=== PATIENT | male | born 1980 | race Caucasian/White ===

== ENCOUNTER → 2018-05-05 07:52 | Outpatient (CLI) | payer OTHER, SELFPAY | PROVIDERS: Family Provider Family Medicine; PCP Family Medicine; Visit Provider Family Medicine | DX: N50.9 Disorder of male genital organs, unspecified (principal) | CPT/HCPCS: 76870; 93976 ==

== ENCOUNTER → 2018-11-19 13:48 | Outpatient (CLI) | payer OTHER, SELFPAY ==
[2018-10-29 08:57] VITALS: BMI 22.4
--- NOTE | 2018-11-19 13:50 | ECHOD_ITS ---
Reason For Study: Valve disease, Hx of A. fib Procedure This was a 2D Doppler, Color Flow transthoracic echocardiogram. The study was technically difficult. Exam performed in department. Left Ventricle Normal LV size. Left ventricular systolic function is normal. The estimated ejection fraction is 60 %. The global longitudinal strain = -20 % (normal). No evidence for diastolic dysfunction. No regional wall motion abnormalities noted. Right Ventricle Normal RV size. Normal systolic function. Atria Normal left atrium. Normal right atrium. No doppler evidence for ASD. Mitral Valve There is no mitral annular calcification. Anterior leaflet diffuse mitral valve thickening. Mild (1+) mitral valve insufficiency. Tricuspid Valve Normal tricuspid valve. Trivial tricuspid valve insufficiency. Right ventricular systolic pressure estimated to be 23 mmHg. Aortic Valve The aortic valve is not well visualized. Pulmonic Valve The pulmonic valve is not well visualized. Great Vessels Normal sized aortic root. Pericardium/Pleural No pericardial effusion. MMode/2D Measurements & Calculations LVIDd: 4.4 cm IVSd: 0.78 cm Ao root diam: 3.4 cm LVIDs: 2.7 cm LVPWd: 0.83 cm RVDd: 3.1 cm FS: 37.4 % LAV(MOD-bp): 44.8 ml EDV(MOD-sp4): 96.7 ml EDV(MOD-sp2): 106.1 ml LAV(MOD-bp) Indexed: 25.8 ml/m2 ESV(MOD-sp4): 41.0 ml EF(MOD-sp2): 65.3 % LAV(MOD-sp2): 51.0 ml EF(MOD-sp4): 57.7 % LAV(MOD-sp4): 38.7 ml SV(MOD-sp4): 55.8 ml SV(MOD-sp2): 69.3 ml LA A4 area: 15.3 cm2 LA dimension(2D): 3.2 cm RA A4 area: 13.0 cm2 Doppler Measurements & Calculations MV E max theresa: 70.3 cm/sec Ao V2 max: 122.2 cm/sec LV V1 max: 106.9 cm/sec MV A max theresa: 36.7 cm/sec Ao max P.0 mmHg LV V1 max P.6 mmHg MV E/A: 1.9 PA V2 max: 115.4 cm/sec TR max theresa: 221.1 cm/sec TR max P.6 mmHg Interpretation Summary The study was technically difficult. Left ventricular systolic function is normal. The estimated ejection fraction is 60 %. The global longitudinal strain = -20 % (normal). Anterior leaflet diffuse mitral valve thickening. Mild (1+) mitral valve insufficiency. Trivial tricuspid valve insufficiency. Right ventricular systolic pressure estimated to be 23 mmHg. No evidence for diastolic dysfunction. Ordering Physician: Lalit Aldridge/Wilbert Cruz Referring Physician: Jens Romo Performed By: Radha Rubio, DR[facility]
== END ==
PROVIDERS: Family Provider Family Medicine; PCP Family Medicine; Referring Provider Nurse Practitioner Family; Visit Provider Nurse Practitioner Family
DX: I27.20 Pulmonary hypertension, unspecified (principal); I34.0 Nonrheumatic mitral (valve) insufficiency; I48.0 Paroxysmal atrial fibrillation
CPT/HCPCS: 93306

== ENCOUNTER → 2020-03-20 18:13 | Outpatient (CLI) | payer OTHER, SELFPAY ==
[2019-12-02 15:39] VITALS: BMI 22.7
== END ==
PROVIDERS: PCP Family Medicine; Visit Provider Family Medicine
DX: Z20.828 Contact with and (suspected) exposure to other viral communicable diseases (principal)
CPT/HCPCS: 87635; G2023; U0003

== ENCOUNTER 2020-06-07 12:52 | Outpatient (RCR) | payer OTHER, SELFPAY ==
[2019-12-02 15:39] VITALS: BMI 22.7
== END 2020-06-21 23:59 ==
LOC: EMPH 12:52
PROVIDERS: PCP Family Medicine; Visit Provider Family Medicine Geriatric Medicine
DX: Z11.59 Encounter for screening for other viral diseases (principal)
CPT/HCPCS: 87635; U0003

== ENCOUNTER 2020-07-20 16:35 | Outpatient (RCR) | payer OTHER, SELFPAY ==
[2019-12-02 15:39] VITALS: BMI 22.7
[2020-07-05 16:00] VITALS: BMI 22.1
== END 2020-07-22 23:59 ==
LOC: EMPH 16:35
PROVIDERS: PCP Family Medicine; Visit Provider Family Medicine Geriatric Medicine
DX: Z03.818 Encounter for observation for suspected exposure to other biological agents ruled out (principal)
CPT/HCPCS: 87426

== ENCOUNTER 2020-08-03 09:03 | Outpatient (RCR) | payer OTHER, SELFPAY ==
[2020-07-05 16:00] VITALS: BMI 22.1
[2020-07-27 14:30] LABS: Probe Check PASS; Specimen Processing Control PASS
[2020-08-03 13:44] LABS: Probe Check PASS; Specimen Processing Control PASS
== END 2020-08-21 23:59 ==
LOC: EMPH 09:03
PROVIDERS: PCP Family Medicine; Visit Provider Family Medicine Geriatric Medicine
DX: Z03.818 Encounter for observation for suspected exposure to other biological agents ruled out (principal)
CPT/HCPCS: 87426; 87635; U0002

== ENCOUNTER 2020-11-17 14:50 | Outpatient (RCR) | payer OTHER, SELFPAY ==
[2020-07-05 16:00] VITALS: BMI 22.1
== END 2020-11-19 23:59 ==
LOC: EMPH 14:50
PROVIDERS: PCP Family Medicine; Referring Provider Family Medicine Geriatric Medicine; Visit Provider Family Medicine Geriatric Medicine
DX: Z03.818 Encounter for observation for suspected exposure to other biological agents ruled out (principal)
CPT/HCPCS: 87426

== ENCOUNTER 2020-12-13 12:02 | Outpatient (RCR) | payer OTHER, SELFPAY ==
[2020-07-05 16:00] VITALS: BMI 22.1
== END 2020-12-20 23:59 ==
LOC: EMPH 12:02
PROVIDERS: PCP Family Medicine; Referring Provider Family Medicine Geriatric Medicine; Visit Provider Family Medicine Geriatric Medicine
DX: Z03.818 Encounter for observation for suspected exposure to other biological agents ruled out (principal)
CPT/HCPCS: 87426

== ENCOUNTER 2021-01-12 11:14 | Outpatient (RCR) | payer OTHER, SELFPAY ==
[2020-07-05 16:00] VITALS: BMI 22.1
== END 2021-01-19 23:59 ==
LOC: EMPH 11:14
PROVIDERS: PCP Family Medicine; Referring Provider Family Medicine Geriatric Medicine; Visit Provider Family Medicine Geriatric Medicine
DX: Z03.818 Encounter for observation for suspected exposure to other biological agents ruled out (principal)
CPT/HCPCS: 87426

== ENCOUNTER 2021-03-21 08:01 | Outpatient (RCR) | payer OTHER, SELFPAY ==
[2020-07-05 16:00] VITALS: BMI 22.1
== END 2021-03-21 23:59 ==
LOC: EMPH 08:01
PROVIDERS: PCP Family Medicine; Visit Provider Family Medicine Geriatric Medicine
DX: Z03.818 Encounter for observation for suspected exposure to other biological agents ruled out (principal)
CPT/HCPCS: 87426

== ENCOUNTER 2021-05-22 12:46 | Outpatient (RCR) | payer OTHER, SELFPAY ==
[2020-07-05 16:00] VITALS: BMI 22.1
== END 2021-05-22 23:59 ==
LOC: EMPH 12:46
PROVIDERS: PCP Family Medicine; Referring Provider Family Medicine Geriatric Medicine; Visit Provider Family Medicine Geriatric Medicine
DX: Z03.818 Encounter for observation for suspected exposure to other biological agents ruled out (principal)
CPT/HCPCS: 87426

== ENCOUNTER 2021-06-04 13:46 | Outpatient (RCR) | payer OTHER, SELFPAY ==
[2021-05-23 00:16] VITALS: BMI 22.1
== END 2021-06-21 23:59 ==
LOC: EMPH 13:46
PROVIDERS: PCP Family Medicine; Referring Provider Family Medicine Geriatric Medicine; Visit Provider Family Medicine Geriatric Medicine
DX: Z03.818 Encounter for observation for suspected exposure to other biological agents ruled out (principal)
CPT/HCPCS: 87426

== ENCOUNTER 2021-07-24 15:44 | Outpatient (RCR) | payer OTHER, SELFPAY ==
[2021-06-22 00:12] VITALS: BMI 22.1
== END 2021-08-21 23:59 ==
LOC: EMPH 15:44
PROVIDERS: PCP Family Medicine; Referring Provider Family Medicine Geriatric Medicine; Visit Provider Family Medicine Geriatric Medicine
DX: Z03.818 Encounter for observation for suspected exposure to other biological agents ruled out (principal)
CPT/HCPCS: 87426

== ENCOUNTER 2021-09-13 10:20 | Outpatient (RCR) | payer OTHER, SELFPAY ==
[2021-08-22 00:07] VITALS: BMI 22.1
== END 2021-09-21 23:59 ==
LOC: EMPH 10:20
PROVIDERS: PCP Family Medicine; Referring Provider Family Medicine Geriatric Medicine; Visit Provider Family Medicine Geriatric Medicine
DX: Z03.818 Encounter for observation for suspected exposure to other biological agents ruled out (principal)
CPT/HCPCS: 87426; 87635; U0003; U0005

== ENCOUNTER 2021-09-27 14:12 | Outpatient (RCR) | payer OTHER, SELFPAY ==
[2021-09-22 00:11] VITALS: BMI 22.1
== END 2021-10-22 23:59 ==
LOC: EMPH 14:12
PROVIDERS: PCP Family Medicine; Referring Provider Family Medicine Geriatric Medicine; Visit Provider Family Medicine Geriatric Medicine
DX: Z03.818 Encounter for observation for suspected exposure to other biological agents ruled out (principal)
CPT/HCPCS: 87426

== ENCOUNTER 2022-03-11 21:41 | Emergency (ER) | payer OTHER, SELFPAY ==
[2022-03-11 21:42] VITALS: BP 164/91; PULSE 110; RESP 16; TEMP 36.3; O2SAT 100; BMI 22.7
[2022-03-11 21:49] VITALS: PULSE 130; RESP 27; O2SAT 99
--- NOTE | 2022-03-11 22:06 | EKG12_ITS ---
Test Reason : TACHYCARDIA Blood Pressure : / mmHG Vent. Rate : 129 BPM Atrial Rate : 104 BPM P-R Int : 000 ms QRS Dur : 096 ms QT Int : 316 ms P-R-T Axes : 000 060 021 degrees QTc Int : 462 ms Atrial fibrillation Nonspecific T wave abnormality Abnormal ECG Confirmed by DAO JACOME, MOHINDER ([id number]), supervising editor news reel TSERING CERVANTES [id number]) on 03/12/2022 9:05:33 AM Referred By: MIKE Confirmed By:MOHINDER DC MD
--- NOTE | 2022-03-11 22:13 | EDS_ITS ---
HPI History of Present Illness Chief Complaint: Palpitations Narrative Narrative: 1-year-old male presenting with palpitations. He has a history of A. fib distantly. He states that he initially had atrial fibrillation distantly when he was doing a bike race and did a lot of caffeine. There was no other source for him to go into a regular rhythm. He follows with Dr. rCuz annually. He has not had any issues. Today he states he was doing [address] with his daughter and noticed that he was having palpitations and thought he was in A. fib. He is not anticoagulated. He is not on anything for rate control because he is never had a repeat of his A. fib. He is not having chest pain or shortness of breath. He feels otherwise well. [facility] Medical History COVID-19 Ectopic cardiac beats History of allergic rhinitis History of environmental allergies Left lumbar radiculopathy Mild pulmonary hypertension Nonrheumatic mitral (valve) insufficiency Paroxysmal atrial fibrillation Segmental and somatic dysfunction of lumbar region Segmental and somatic dysfunction of sacral region Segmental and somatic dysfunction of thoracic region Home Medications aspirin 81 mg tablet,delayed release 81 mg PO QDAY 04/28/18 [History Last Taken Unknown] cholecalciferol (vitamin D3) 50 mcg (2,000 unit) capsule 50 mcg PO DAILY 07/05/20 [History Last Taken Unknown] apixaban 5 mg (74 tabs) tablets in a dose pack (Eliquis DVT-PE Treat 30D Start) 5 mg PO BID #74 tabs 03/11/22 [Rx Last Taken Unknown] metoprolol tartrate 50 mg tablet 25 mg PO BID #60 tabs 03/11/22 [Rx Last Taken Unknown] Allergy/AdvReac Type Severity Reaction Status Date / Time No Known Allergies Allergy Verified 03/11/22 21:42 Family History Grandfather , Early 60's CAD (coronary artery disease) Myocardial infarction Surgical History History of vasectomy (~11/2014) History of wisdom tooth extraction Social History Smoking Status: Never smoker alcohol intake: current alcohol intake frequency: a few times a week caffeine: Yes Type: coffee Number of servings: 1 ROS ROS ED Constitutional Constitutional ED: Denies chills or fever(s) Eyes Eyes: Denies change in vision or diplopia ENT ENT ED: Denies rhinorrhea or sore throat Cardiovascular Cardiovascular: Reports palpitations and racing heartbeat; Denies chest pain Respiratory/Chest Respiratory/Chest: Denies cough or dyspnea Gastrointestinal Gastrointestinal: Denies abdominal pain, constipation or diarrhea Genitourinary Genitourinary ED: Denies dysuria or hematuria Musculoskeletal Musculoskeletal: Denies arthralgias or back pain Integumentary Denies abscess or Abrasions Neurologic Neurologic: Denies headache(s) or paresthesias Psychiatric Psychiatric: Denies anxiety or depression EXAM Physical Exam Const Vital Signs: 03/11/22 21:42 03/11/22 21:49 03/11/22 22:46 Temperature 97.4 F L Temperature Source Temporal Pulse Rate 110 H 130 H 107 H Respiratory Rate 16 27 H Blood Pressure 164/91 H 142/91 H Blood Pressure Mean 115 108 Pulse Ox 100 99 Oxygen Delivery Method Room Air Room Air 03/11/22 22:58 03/11/22 23:00 Temperature Temperature Source Pulse Rate 76 Respiratory Rate Blood Pressure 126/58 H Blood Pressure Mean 80 Pulse Ox Oxygen Delivery Method Room Air Positive well nourished and well developed General Appearance ED: well developed and NAD; Negative for pallor HEENT Reports moist mucous membranes Eyes PERRL and EOMs intact bilaterally Neck no lymphadenopathy Chest Wall inspection of chest normal and palpation of chest normal Resp normal respiratory effort and clear to auscultation bilaterally Auscultation: Negative for rales, rhonchi or wheezes Cardio Rhythm: abnormal rhythm irregularly irregular Extremity normal to inspection Neuro oriented x3 and CN's II-XII intact bilaterally Sensorium / Orientation: alert Motor Exam: strength 5/5 throughout Psych mental status grossly normal Skin General Skin Exam: Negative for jaundice or pallor MDM MDM MDM Narrative Medical decision making narrative: Patient presenting with palpitations and a history of A. fib in 2014. He states this occurred while he was doing a long distance bike ride for competition and he was drinking vodka he had follow-up echocardiograms and stress test as well as Holter monitors. He has a history of trace MR, mild pulmonary hypertension and ectopic beats and PVCs but no new runs of A. fib until today. His EKG today is atrial fibrillation and ventricular rate of 129 bpm on my interpretation. He did get up to about the 140s. He was given a liter of IV fluids and 20 mg of Cardizem IV. On reevaluation his heart rate is down into the 70s. He is no longer feeling palpitations. He does appear to be in A. fib still. CBC and BMP are unremarkable. High-sensitivity troponin is 3. Chest x-ray on my interpreta tion shows no acute cardiopulmonary process and radiologist agree. Since he still in atrial fibrillation I did discuss the case with Dr. Velásquez. He recommended placing the patient on 25 mg p.o. twice daily metoprolol and starting the patient on Eliquis. He will be given a starter pack. 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 I did discuss at length with him the risk of being on blood thinners and recently he would need to return to the ER if he has subsequent injuries on blood thinners. I discussed black and bloody stools. He is to monitor his blood pressure since he is on metoprolol now. Patient given return precautions. Impression: 1. A. fib with RVR 2. Palpitations Lab Data Attestation: I reviewed the patient's lab results. Labs: Laboratory Results - last 24 hr 03/11/22 03/11/22 21:50 21:50 WBC 7.0 RBC 4.87 Hgb 14.9 Hct 42.8 MCV 87.9 MCH 30.6 MCHC 34.8 RDW Std Deviation 38.5 RDW Coeff of Kelly 12.0 Plt Count 225 MPV 10.0 Immature Gran % (Auto) 0.300 Neut % (Auto) 51.6 Lymph % (Auto) 36.3 [place] % (Auto) 8.3 Eos % (Auto) 2.6 Baso % (Auto) 0.9 Absolute Neuts (auto) 3.6 Absolute Lymphs (auto) 2.55 Nucleated RBC % 0 Sodium 138 Potassium 3.7 Chloride 105 Carbon Dioxide 30.0 Anion Gap 3 L BUN 16 Creatinine 1.05 Estim Creat Clear Calc 84.39 Est GFR (MDRD) Af Amer 99 Est GFR (MDRD) Non-Af 82 BUN/Creatinine Ratio 15.2 Glucose 117 H Calcium 9.3 Troponin I High Sens 3 Radiography Diagnostic Testing: Clinical Impression(s) from Imaging Studies Chest X-Ray 03/11/22 22:50 IMPRESSION: Hyperexpanded lungs suggesting asthma or COPD. Electronically Signed: Jens Hewitt MD at 23:07 EDT , Discharge Plan Triage Chief Complaint: Palpitations ED Provider: Maged Galvan Dx/Rx/DC Orders Instructions: ED AFIB, Blood Thinner Pills: Your Guide to Using them Safely Prescriptions: New Eliquis DVT-PE Treat 30D Start 5 mg (74 tabs) tablets,dose pack 5 mg PO BID Qty: 74 0RF metoprolol tartrate 50 mg tablet 25 mg PO BID Qty: 60 0RF No Action aspirin 81 mg tablet,delayed release (DR/EC) 81 mg PO QDAY cholecalciferol (vitamin D3) 50 mcg (2,000 unit) capsule 50 mcg PO DAILY Primary Care Provider: Jens Romo Referrals: Jens Romo DO [Primary Care Provider] - Wilbert Cruz MD [STAFF PHYSICIAN] - As soon as possible Disposition Disposition: Home, Self Care
[2022-03-11 22:18] LABS: Absolute Lymphocyte Count 2.55 X10^3/uL (0.83-4.51); Absolute Neutrophil Count 3.6 X10^3/uL (2.0-7.7); Basophil# 0.06 X10^3/uL; Basophil% 0.9 % (0-1); Eosinophil# 0.18 X10^3/uL; Eosinophils% 2.6 % (0-5); Hematocrit 42.8 % (40-54); Hemoglobin 14.9 g/dL (13.0-16.5); Lymphocyte # 2.55 X10^3/ul (0.83-4.51); Lymphocyte % 36.3 % (19-41); Mean Corp Hgb Conc 34.8 g/dL (32-36); Mean Corpuscular Hgb 30.6 pg (27.0-32.0); Mean Corpuscular Volume 87.9 fL (80-94); Monocyte# 0.58 X10^3/uL; Monocyte% 8.3 % (0-10); NRBC Flagged by Analyzer 0 % (0-5); Neutrophil # 3.64 X10^3/uL (2.7-7.7); Neutrophil % 51.6 % (47-70); Platelet Count 225 K/mm3 (150-450); RBC Distribution Width SD 38.5 fl (35.1-43.9); Red Blood Count 4.87 M/mm3 (4.6-6.2)
[2022-03-11] MEDS: APIXABAN 5 MG TABLET 10 MG PO (22:38)
[2022-03-11 22:40] LABS: Anion Gap 3 (5-15); BUN 16 mg/dL (7-18); BUN/Creat Ratio 15.2 RATIO (10-20); Calcium,Total 9.3 mg/dL (8.5-10.1); Chloride 105 mmol/L (98-107); Creatinine, Serum 1.05 mg/dL (0.70-1.30); EST Glomerular Filtration Rate 82 mL/min (>60); Est Glom Filt Rate - Afr Amer 99 mL/min (>60); Estimated Creatinine Clearance 84.39 ml/min; Glucose 117 mg/dL (74-106); Potassium 3.7 mmol/L (3.5-5.1); Sodium Level 138 mmol/L (136-145); Troponin-I HS (w/2H Reflex) 3 pg/mL (3.0-78.0)
[2022-03-11] MEDS: 0.9% Normal Saline 1,000 ML 1000 ML IV (22:42)
[2022-03-11] MEDS: dilTIAZem 25 MG/5 ML Vial 20 MG IV BOLUS (22:42)
[2022-03-11 22:46] VITALS: BP 142/91; PULSE 107
--- NOTE | 2022-03-11 22:50 | RAD_ITS ---
INDICATION: chest pain EXAMINATION/TECHNIQUE: X-RAY - XR Chest 1 View COMPARISON: None. FINDINGS: LINES/DEVICES: None. LUNGS: Hyperexpanded lungs. No pulmonary edema or focal airspace consolidation. No sizable pleural effusion. No pneumothorax detected. MEDIASTINUM AND CARDIOVASCULAR STRUCTURES: Heart size within normal limits. Mediastinal contours unremarkable. BONES AND SOFT TISSUES: No acute findings. RAD/Chest 1 View (Portable) IMPRESSION: Hyperexpanded lungs suggesting asthma or COPD. Electronically Signed: Jens Hewitt MD at 23:07 EDT ,
[2022-03-11 23:00] VITALS: BP 126/58; PULSE 76
[2022-03-11] MEDS: Metoprolol Tartrate 25 MG Tablet PO (23:38)
[2022-03-11 23:52] VITALS: BP 118/72; PULSE 91; RESP 15; O2SAT 97
[2022-03-12 00:16] LABS: Reflex Troponin-HS? (from REC) Y
== END 2022-03-12 01:01 | disposition home or self-care (01) ==
PROVIDERS: Emergency Provider Student in an Organized Health Care Education/Training Program; PCP Family Medicine; Visit Provider Student in an Organized Health Care Education/Training Program
DX: I48.91 Unspecified atrial fibrillation (principal); R00.2 Palpitations; Z86.16 Personal history of COVID-19; Z79.82 Long term (current) use of aspirin
CPT/HCPCS: 71045; 80048; 84484; 85025; 93005; 96361; 96374; 99285; J7030; A4216

== ENCOUNTER → 2022-03-28 | Outpatient (CLI) | payer OTHER, SELFPAY ==
--- NOTE | 2022-03-28 07:49 | ECHOD_ITS ---
Reason For Study: ATRIAL FIB-FLUTTER Procedure This was a 2D Doppler, Color Flow transthoracic echocardiogram. The exam was of adequate technical quality. Exam performed in department. Left Ventricle Normal LV size. Left ventricular systolic function is normal. The estimated ejection fraction is 65 %. No evidence for diastolic dysfunction. No regional wall motion abnormalities noted. Right Ventricle Normal RV size. Normal systolic function. Atria Normal left atrium. Normal right atrium. No doppler evidence for ASD. Mitral Valve There is no mitral annular calcification. Normal mitral valve. Mild (1+) mitral valve insufficiency. Tricuspid Valve Normal tricuspid valve. Mild tricuspid valve insufficiency. Right ventricular systolic pressure estimated to be 29 mmHg. Aortic Valve Trisinus/trileaflet aortic valve. Normal aortic valve. Pulmonic Valve The pulmonic valve is not well visualized. Great Vessels The aortic root is not well visualized. Pericardium/Pleural No pericardial effusion. MMode/2D Measurements & Calculations LVIDd: 5.0 cm IVSd: 0.83 cm LAV(MOD-bp): 49.5 ml LVIDs: 3.1 cm LVPWd: 0.87 cm LAV(MOD-bp) Indexed: 28.1 ml/m2 RVDd: 3.0 cm FS: 38.7 % LAV(MOD-sp2): 69.2 ml LAV(MOD-sp4): 34.6 ml SV(MOD-sp4): 60.4 ml SV(sp4-el): 61.8 ml LVAd ap4: 28.2 cm2 LVLd ap4: 7.7 cm EDV(MOD-sp4): 87.1 ml EDV(sp4-el): 88.1 ml LVAs ap4: 13.7 cm2 LVLs ap4: 6.0 cm ESV(MOD-sp4): 26.7 ml ESV(sp4-el): 26.3 ml EF(MOD-sp4): 69.4 % EF(sp4-el): 70.1 % LA A4 area: 14.3 cm2 LA dimension(2D): 3.3 cm RA A4 area: 16.0 cm2 Doppler Measurements & Calculations MV E max niles: 85.7 cm/sec Lat Peak E' Niles: 14.7 cm/sec Med Peak E' Niles: 11.4 cm/sec MV A max niles: 40.4 cm/sec E/E' lat: 5.8 E/E' med: 7.5 MV E/A: 2.1 Ao V2 max: 121.5 cm/sec LV V1 max: 108.3 cm/sec MR max niles: 480.1 cm/sec Ao max P.9 mmHg LV V1 max P.7 mmHg MR max P.2 mmHg TR max niles: 253.7 cm/sec TR max P.8 mmHg ECHO/Echo Complete Interpretation Summary Left ventricular systolic function is normal. The estimated ejection fraction is 65 %. Mild (1+) mitral valve insufficiency. Mild tricuspid valve insufficiency. Right ventricular systolic pressure estimated to be 29 mmHg. No evidence for diastolic dysfunction. Ordering Physician: Wilbert Cruz Referring Physician: Wilbert Cruz Performed By: Nimisha Feliz RCS
== END | disposition home or self-care (01) ==
LOC: CVS 07:48
PROVIDERS: PCP Family Medicine; Referring Provider Internal Medicine Cardiovascular Disease; Visit Provider Internal Medicine Cardiovascular Disease
DX: I48.0 Paroxysmal atrial fibrillation (principal); I34.0 Nonrheumatic mitral (valve) insufficiency
CPT/HCPCS: 93306

== ENCOUNTER → 2024-02-27 | Outpatient (CLI) | payer SELFPAY | END | disposition home or self-care (01) | LOC: EMPH 13:20 | PROVIDERS: PCP Family Medicine; Visit Provider Family Medicine Geriatric Medicine | DX: Z03.818 Encounter for observation for suspected exposure to other biological agents ruled out (principal) | CPT/HCPCS: 87811 ==

== ENCOUNTER → 2024-03-05 | Outpatient (CLI) | payer SELFPAY | END | disposition home or self-care (01) | LOC: EMPH 13:31 | PROVIDERS: PCP Family Medicine; Visit Provider Family Medicine Geriatric Medicine | DX: Z03.818 Encounter for observation for suspected exposure to other biological agents ruled out (principal) | CPT/HCPCS: 87811 ==

== ENCOUNTER → 2024-04-21 | Outpatient (CLI) | payer OTHER, SELFPAY ==
[2024-04-21 13:52] LABS: PSA,Total - Annual Screen 1.77 ng/mL (0.00-4.00)
== END | disposition home or self-care (01) ==
PROVIDERS: PCP Family Medicine; Referring Provider Urology; Visit Provider Urology
DX: Z12.5 Encounter for screening for malignant neoplasm of prostate (principal)
CPT/HCPCS: 36415; 84153; G0103

== ENCOUNTER 2024-06-03 06:24 | Day surgery (SDC) | payer OTHER, SELFPAY ==
[2024-06-03] VITALS (8 sets, daily range): BP systolic 106–141; BP diastolic 69–77; PULSE 47–59; RESP 16–18; TEMP 36.3–36.6; O2SAT 98–100; BMI 22.6
[2024-06-03] MEDS: Lactated Ringers 1,000 ML 15 ML IV (07:02)
--- NOTE | 2024-06-03 07:14 | PCM.PRE.AN2 ---
ASA Classification* ASA Classification ASA Classification: 3 Assessment & Plan Anesthesia* Anesthesia Assessment Anesthesia Assessment: Discussed sedation and/or anesthesia options, risks, benefits, and alternatives with patient/parents/legal guardian/POA. Questions invited. The patient/parents/legal guardian/POA seems to understand and agrees to proceed with anesthesia plan. Reviewed the physical assessment, medical history, allergy history and patient home medications list prior to surgery/procedure/anesthetic and documented any changes. Performed airway and anesthesia risk assessments. Anesthesia Type Anesthesia Type: MAC (see written pre anesthesia record for full assessment) Anesthesia Focused Assessment* Temperature: 97.4 F Pulse Rate: 59 Blood Pressure: 141/69 Respiratory Rate: 16 Pulse Ox: 100 Airway Assessment Mouth opens: >3 cm Mallampati Score: II Focused Labs Anesthesia Preop lab: CBC WBC 4.7 K/mm3 (4.4-11.0) 04/20/24 08:09 RBC 5.04 M/mm3 (4.6-6.2) 04/20/24 08:09 Hgb 15.2 g/dL (13.0-16.5) 04/20/24 08:09 Hct 44.1 % (40-54) 04/20/24 08:09 Plt Count 213 K/mm3 (150-450) 04/20/24 08:09 CHEMISTRY Potassium 3.9 mmol/L (3.5-5.1) 04/20/24 08:09 Sodium 138 mmol/L (136-145) 04/20/24 08:09 Phosphorus 2.5 mg/dL (2.5-4.9) 04/20/24 08:09 BUN 13 mg/dL (7-18) 04/20/24 08:09 Creatinine 1.00 mg/dL (0.70-1.30) 04/20/24 08:09 Glucose 104 mg/dL (74-106) 04/20/24 08:09 TSH 2.09 uIU/mL (0.358-3.74) 04/15/14 07:56 COAG Pre-Assessment Diagnosis/Proposed Procedure Planned Operative Procedure(s): CSCOPE Anesthesia History 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 When Was Last Pacemaker Check QUESTION #4 FULL TEXT: You/Your Family Experience fever (hyperthermia) with Anesthesia Last Oral Intake Last Oral intake: Last Oral Intake NPO since 00:00 06/03/24 06:50 Meds taken in AM with sips of No 06/03/24 06:50 water? Meds patient instructed to take am of surgery PONV PONV - industrial truck operator: PONV - industrial truck operator Female No 06/02/24 10:22 HX of Motion Sickness No 06/02/24 10:22 HX of N/V After Surgery No 06/02/24 10:22 Non-Smoker Yes 06/02/24 10:22 Duration of Surgery greater No 06/02/24 10:22 than 60 minutes Number of Risk Factors 1 06/02/24 10:22 PONV Score Low Risk 06/02/24 10:22 Height & Weight Height & Weight: Anesthesia: Height & Weight Height 5 ft 7 in 06/03/24 06:50 Weight: 65.68 kg 06/03/24 06:50 Body Mass Index (BMI) 22.6 06/03/24 06:50 Respiratory Assessment Respiratory Assessment - industrial truck operator: Respiratory Tract Infection Hx - industrial truck operator Hx Respiratory Tract Infection No 06/02/24 10:22 STOP Sleep Apnea STOP Sleep Apnea - industrial truck operator: STOP Sleep Apnea - industrial truck operator Hx Hypertension No 06/02/24 10:22 Hx Sleep Apnea No 06/02/24 10:22 CPAP BIPAP Do you snore loudly (louder No 06/02/24 10:22 than talking or can be heard Do you often feel tired/ No 06/02/24 10:22 fatigued/ sleepy during daytime? Has anyone observed you stop No 06/02/24 10:22 breathing during sleep? STOP Results Negative 06/02/24 10:22 QUESTION #5 FULL TEXT : Do you snore loudly (louder than talking or can be heard through closed doors)? Tobacco Use History Tobacco Use History - industrial truck operator: Tobacco Use History - industrial truck operator Tobacco Use Smoking Status Never smoker 06/02/24 10:22 Hx Tobacco Use No 06/02/24 10:22 Years Smoking Packs Smoked per Day Smoking Cessation Date was within the last 15 years Hx Smoking Cessation Date Hx Smoking Cessation Counseling Hematologic Medial History Hematologic Hx - industrial truck operator: Hematologic Medical Hx - supervisor boarding Hx of Blood Transfusion No 06/02/24 10:22 Hx of Transfusion in last 3 No 06/02/24 10:22 Months Date of Last Transfusion (if within last 3 months) Ever experience any problems No 06/02/24 10:22 with transfusion(s)? Specify any problems Hx of Preganancy in last 3 N/A 06/02/24 10:22 Months Nurse Filling Out Transfusion NBUCHER 06/02/24 10:22 & Questions: Date: 06/02/24 06/02/24 10:22 Time: 10:24 06/02/24 10:22 Patient unable to answer at this time (ie. confused, unrespo /Reproduction History /Reproductive History - industrial truck operator: /Reproductive Hx- industrial truck operator Hx Now No 06/02/24 10:22 Gestational Age (in weeks): EDC: Hx Hx Para Hx Section SAB No 06/02/24 10:22 Active Medications Active Medications: Current Medications Generic Name Dose Route Start Last Admin Trade Name Freq PRN Reason Stop Dose Admin Lactated Ringer's 1,000 mls @ 15 mls/hr 06/03/24 06:45 06/03/24 07:02 IV 15 mls/hr .Q48H AINSLEY Administration PFSH Medical History Alcohol use Non-smoker History of atrial fibrillation Cardiology follow-up encounter History of echocardiogram Ectopic cardiac beats COVID-19 Paroxysmal atrial fibrillation Mild pulmonary hypertension History of environmental allergies Nonrheumatic mitral (valve) insufficiency History of allergic rhinitis Left lumbar radiculopathy Segmental and somatic dysfunction of thoracic region Segmental and somatic dysfunction of lumbar region Segmental and somatic dysfunction of sacral region Home Medications ?Medication ?Instructions ?Recorded ?Last Taken ?Type cholecalciferol (vitamin D3) 25 25 mcg PO DAILY 06/18/22 06/01/24 History mcg (1,000 unit) tablet aspirin 81 mg tablet,delayed 81 mg PO QDAY #90 tabs 06/26/22 05/27/24 Rx release (Adult Aspirin Regimen) fexofenadine 60 mg tablet (Greta 60 mg PO BID PRN allergic symptoms 06/03/24 06/01/24 History Allergy) quercetin 500 mg capsule 500 mg PO DAILY prostate 06/03/24 06/01/24 History Allergy/AdvReac Type Severity Reaction Status Date / Time No Known Allergies Allergy Verified 06/03/24 06:45 Family History Grandfather , Early 60's CAD (coronary artery disease) Myocardial infarction Surgical History Hx of LASIK History of wisdom tooth extraction History of vasectomy (~11/2014) Social History household members: spouse number of children: 2 current occupational status: employed current occupation: [employer] Smoking Status: Never smoker alcohol intake: current alcohol intake frequency: a few times a week substance use type: does not use caffeine: Yes Type: coffee Number of servings: 1 and tea Number of servings: 1 Review of Systems (Anesthesia) ROS Narrative System reviewed and no additional complaints, except as documented.
--- NOTE | 2024-06-03 07:30 | COLBX_PTH ---
PATIENT: GERA PETERS LOC: EN U#:[id number] AGE/SX: 43/M ROOM: RE06/03/[address]: Dr. Alvarez Conner MD : 1980 BED: DIS: 06/03/2024 SPEC #: [id number] RECD: 06/03/24 11:51 STATUS: RADHA LINNETTE #: [id number] MICHAEL: 06/03/24 07:[address]: Alvarez Conner DEPT: SURGICAL PATHOLOGY RECD BY: Robert Browning ENTERED: 06/03/24 13:55 SP TYPE: COLON BX CATINA DR: Dr. Jens Romo DO Tissues: A - COLON BIOPSY B - Sigmoid colon biopsy Procedures: Surgery Specimen Level IV HEADER OPERATION: Colonoscopy with biopsies PRE-OP DIAGNOSIS: Encounter for screening for malignant neoplasm of colon TISSUE SUBMITTED: A- Abnormal cecal mucosal fold biopsy, B- Sigmoid mucosal biopsy MICROSCOPIC DIAGNOSIS A. Cecum, biopsy: No pathologic change. B. Sigmoid colon, biopsy: Focal mucosal denudation. Changes of ischemic colitis. / 06/04/2024 MICROSCOPIC DESCRIPTION Slides are reviewed. GROSS DESCRIPTION A. Received in fixative is one container labeled with the patient's name and designated Abnormal cecal mucosal fold biopsy. The specimen consists of one irregular fragment of light barnes soft tissue that measures 0.3 x 0.3 x 0.1 cm. The specimen is totally submitted in one cassette. B. Received in fixative is one container labeled with the patient's name and designated Sigmoid mucosal biopsy. The specimen consists of one irregular fragment of light barnes soft tissue that measures 0.3 x 0.2 x 0.1 cm. The specimen is totally submitted in one cassette. 06/03/2024 TC:5 CPT:41332q3
--- NOTE | 2024-06-03 07:34 | HP.PCM_ITS ---
[facility] - General General Date of Service: 06/03/24 Chief Complaint: Colon cancer screening HPI Narrative GERA PETERS, is a 43 M who presents for screening colonoscopy. He confirms his preappointment questionnaire that he has not experienced any change in his bowel habits-and particularly denies any notice of blood. He also denies any family history of GI illness to include diverticulitis, inflammatory bowel disease, or colon cancer. Lastly he confirms that his prep was completed overall successfully and that his output is now overall clear. Cardiac history was discussed and patient appears to have some exercise?induced atrial fibrillation. This is only occurred twice before in his life. Both were related to exertional experiences. He denies any prior experience of sedation or anesthesia. [facility] Medical History Alcohol use Non-smoker History of atrial fibrillation Cardiology follow-up encounter History of echocardiogram Ectopic cardiac beats COVID-19 Paroxysmal atrial fibrillation Mild pulmonary hypertension History of environmental allergies Nonrheumatic mitral (valve) insufficiency History of allergic rhinitis Left lumbar radiculopathy Segmental and somatic dysfunction of thoracic region Segmental and somatic dysfunction of lumbar region Segmental and somatic dysfunction of sacral region Home Medications ?Medication ?Instructions ?Recorded ?Last Taken ?Type cholecalciferol (vitamin D3) 25 25 mcg PO DAILY 06/18/22 06/01/24 History mcg (1,000 unit) tablet aspirin 81 mg tablet,delayed 81 mg PO QDAY #90 tabs 06/26/22 05/27/24 Rx release (Adult Aspirin Regimen) fexofenadine 60 mg tablet (Greta 60 mg PO BID PRN allergic symptoms 06/03/24 06/01/24 History Allergy) quercetin 500 mg capsule 500 mg PO DAILY prostate 06/03/24 06/01/24 History Allergy/AdvReac Type Severity Reaction Status Date / Time No Known Allergies Allergy Verified 06/03/24 06:45 Family History Grandfather , Early 60's CAD (coronary artery disease) Myocardial infarction Surgical History Hx of LASIK History of wisdom tooth extraction History of vasectomy (~11/2014) Social History household members: spouse number of children: 2 current occupational status: employed current occupation: [employer] Smoking Status: Never smoker alcohol intake: current alcohol intake frequency: a few times a week substance use type: does not use caffeine: Yes Type: coffee Number of servings: 1 and tea Number of servings: 1 Past Medical/Surgical History Planned Operation Planned Operative Procedure(s): CSCOPE Previous Hospitalizations/Surgeries HX Hospitalizations: No Any Problems With Anesthesia: No You/Your Family Experience Fever (Hyperthermia) With Anes: No Cholinesterase deficiency: No Cardiovascular Hx Hypertension: No Respiratory Hx Sleep Apnea: No Hx Respiratory Tract Infection/Cold (presently): No Do You Snore Loudly (louder than talking or can be heard): No Do You Often Feel Tired/ Fatigued/ Sleepy Dring Daytime?: No Has Anyone Observed You Stop Breathing During Sleep?: No Result (for STOP score): Negative Smoking Status: Never smoker Neurological Does patient have nerve stimulator: No Reproduction : No Miscellaneous Recent Exposure to Contagious Disease: No Allergies No Known Allergies Allergy (Verified 06/03/24 06:45) Discharge Is Pt Admitted From a Penitentiary, or a Fpc: No After D/C, Where Do you Plan to Go: Return Home Vital Signs Vital Signs Vital Signs: 06/03/24 06:49 06/03/24 06:50 06/03/24 07:14 Temperature 97.4 F L 97.4 F L Temperature Source Temporal Pulse Rate 59 L 59 L Respiratory Rate 16 16 Respiratory Pattern Normal Blood Pressure 141/69 H 141/69 H Blood Pressure Mean 93 Blood Pressure Source Monitor Blood Pressure Position Semi-Fowlers Blood Pressure Location Right Arm Pulse Ox 100 100 Oxygen Delivery Method Room Air Weight Weight: 144 lb 12.8 oz Body Mass Index (BMI) 22.6 Physical Exam Const alert, oriented x3 and no apparent distress Resp normal respiratory effort GI GI Narrative: Hirsute, slender, no scars, no visible herniation, soft, nontender to palpation x 4 quadrants Assessment & Plan Assessment/Plan (1) Encounter for screening for malignant neoplasm of colon: PLAN: Patient 43-year-old male who presents for for screening colonoscopy with open access colonoscopy program. Preappointment questionnaire confirmed and patient appears to be at average risk for colon cancer. Patient is describing some brown tinting of the water with bowel movements but previously was clear. Therefore, I suspect he may have had some new material moved down from his small bowel, but remain optimistic that we should be able to proceed with our scope today. Additional lavage may be required. Expectations for procedure as well as postprocedure results reporting (if indicated) were reviewed. Patient and his spouse have no questions. Will plan to proceed to endoscopy suite for colonoscopy. Surgery Risks - Colonoscopy Risks Include but are not Limited To: Risks include but are not limited to: Bleeding, perforation requiring further surgery, inability to complete colonoscopy requiring barium enema.
--- NOTE | 2024-06-03 08:42 | OP.CCLET_ITS ---
06/03/2024 Jens Romo [address] [place] [address] Re : Colonoscopy procedure for Osmel Murphy Dear Dr. Romo This procedure was performed on May. My impressions and recommendations are as follows: Impressions : - Nodular mucosa in the cecum. Biopsied. - Melanosis in the colon. Biopsied. - Anal papilla(e) were hypertrophied. No specimens collected. Recommendations : - Discharge patient to home (via wheelchair). - Resume previous diet today. - No aspirin, ibuprofen, naproxen, or other non-steroidal anti-inflammatory drugs for 2 days after biopsy. - Await pathology results. - Repeat colonoscopy date to be determined after pending pathology results are reviewed for surveillance based on pathology results. - Telephone my office for pathology results in 1 week. My findings are described in the full procedure note, which is enclosed. If I can be of further assistance, please feel free to contact me at Doctor phone number(s): , Work: . Sincerely, Alvarez Conner MD 06/03/2024 8:41:55 AM This report has been signed electronically.
--- NOTE | 2024-06-03 08:42 | OP.COLON_ITS ---
Patient Name: Osmel Murphy Procedure Date: 06/03/2024 7:47 AM Date of : 1980 Age: 43 Procedure: Colonoscopy Indications: Screening for colorectal malignant neoplasm Providers: Alvarez Conner MD Medicines: See the Anesthesia note for documentation of the administered medications Patient Profile: Refer to note in patient chart for documentation of history and physical. Last Colonoscopy: none. The patient's first colonoscopy is today. Complications: No immediate complications. Estimated blood loss: Minimal. Procedure: Pre-Anesthesia Assessment: - The heart rate, respiratory rate, oxygen saturations, blood pressure, adequacy of pulmonary ventilation, and response to care were monitored throughout the procedure. After I obtained informed consent, the scope was passed under direct vision. Throughout the procedure, the patient's blood pressure, pulse, and oxygen saturations were monitored continuously. The Colonoscope was introduced through the anus and advanced to the cecum, identified by the appendiceal orifice, IC valve and transillumination. The colonoscopy was somewhat difficult due to poor bowel prep. Successful completion of the procedure was aided by lavage. The patient tolerated the procedure well. The quality of the bowel preparation was adequate to identify polyps greater than 5 mm in size. Scope In: 8:00:14 AM Scope Withdrawal Time 0 hours 23 minutes 50 seconds Scope Out: 8:35:29 AM Total Procedure Duration Time 0 hours 35 minutes 15 seconds Findings: The perianal and digital rectal examinations were normal. A localized area of moderately nodular mucosa was found in the cecum. Biopsies were taken with a cold forceps for histology. Estimated blood loss was minimal. A localized area of mild melanosis was found in the sigmoid colon. Biopsies were taken with a cold forceps for histology. Estimated blood loss was minimal. Anal papilla(e) were hypertrophied. No biopsies or other specimens were collected for this exam. Impression: - Nodular mucosa in the cecum. Biopsied. - Melanosis in the colon. Biopsied. - Anal papilla(e) were hypertrophied. No specimens collected. Recommendation: - Discharge patient to home (via wheelchair). - Resume previous diet today. - No aspirin, ibuprofen, naproxen, or other non-steroidal anti-inflammatory drugs for 2 days after biopsy. - Await pathology results. - Repeat colonoscopy date to be determined after pending pathology results are reviewed for surveillance based on pathology results. - Telephone my office for pathology results in 1 week. Procedure Code(s): --- Professional --- 13671, Colonoscopy, flexible; with biopsy, single or multiple Diagnosis Code(s): --- Professional --- K63.89, Other specified diseases of intestine Z12.11, Encounter for screening for malignant neoplasm of colon K62.89, Other specified diseases of anus and rectum CPT copyright 2021 [employer]. All rights reserved. The codes documented in this report are preliminary and upon data coder operator review may be revised to meet current compliance requirements. Alvarez Conner MD 06/03/2024 8:41:55 AM This report has been signed electronically. Number of Addenda: 0 Note Initiated On: 06/03/2024 7:47 AM
--- NOTE | 2024-06-03 08:44 | PCM.POST.ANE ---
Anesthesia: Postop Eval I Current Vital Signs Temperature: 97.8 F Pulse Rate: 57 Blood Pressure: 126/73 Respiratory Rate: 16 Pulse Ox: 98 Oxygen Delivery Method: Room Air Assessment Airway patent: Yes Spontaneous unlabored respirations: Yes Mental status: Awake and Calm nausea: No Vomiting: No Anesthesia Complication: No Fluid Hydration Crystalloid volume administer (ml): 800 Total IV fluid infused: 800 Progress Note Anesthesia document: Postop Eval 1 completed: Yes
--- NOTE | 2024-06-03 12:13 | PCM.POSTANE2 ---
Anesthesia Postop Eval I Sum Postop Eval Completion status Anesthesia document: Postop Eval 1 completed: Yes Anesthesia Postop Eval I Summary Anesthesia Postop Eval I Summary: Anesthesia Postop Eval I: Assessment Summary Airway patent Yes 06/03/24 08:45 [email or web address] Spontaneous unlabored Yes 06/03/24 08:45 [email or web address] respirations Mental status Awake,Calm 06/03/24 08:45 [email or web address] nausea No 06/03/24 08:45 [email or web address] Vomiting No 06/03/24 08:45 [email or web address] Anesthesia Postop Eval I: Fluid Summary Crystalloid volume administer 800 06/03/24 08:45 [email or web address] (ml) Colloids volume administered ( ml) Blood Product volume administered (ml) Total IV fluid infused 800 06/03/24 08:45 [email or web address] Anesthesia Postop Eval I: Summary Notes Anesthesia Complication No 06/03/24 08:45 [email or web address] Anesthesia Complication Comment: Post-operative progress note Anesthesia: Postop Eval II Evaluation Mental status: Awake Pain Level: 0 nausea: No Vomiting: No
== END 2024-06-03 09:25 | disposition home or self-care (01) ==
LOC: EN 06:24 → AC 06:25
PROVIDERS: PCP Family Medicine; Referring Provider Family Medicine; Visit Provider Surgery
PROC: 0DJD8ZZ Inspection of Lower Intestinal Tract, Via Natural or Artificial Opening Endoscopic (ICD-10-PCS; CPT 45378; principal; 2024-06-03 07:25)
DX: Z12.11 Encounter for screening for malignant neoplasm of colon (principal); I48.0 Paroxysmal atrial fibrillation; K55.9 Vascular disorder of intestine, unspecified; Z79.82 Long term (current) use of aspirin; K62.89 Other specified diseases of anus and rectum
CPT/HCPCS: 45380; 88305; J7120; J2405